=== PATIENT | male | born 1965 | race Caucasian/White ===

== ENCOUNTER 2016-12-07 12:31 | Emergency (ER) | payer OTHER ==
[2016-12-07 13:00] VITALS: BP 139/84; PULSE 83; TEMP 98.2; BMI 46.0
--- NOTE | 2016-12-07 13:24 | EDPRACDOC ---
- General Information Stated Complaint: RT FOOT SWELLING/PAIN Time Seen by Provider: 12/07/16 13:07 Information Source: Patient Mode of Arrival: Car Home Medications: Home Medications Albuterol Sulfate [Ventolin Hfa] 1 - 2 puff INH Q4H PRN 07/07/15 Lisinopril [Prinivil] 20 mg PO DAILY 07/07/15 Atenolol [Tenormin] 50 mg PO DAILY 10/12/15 Budesonide/Formoterol Fumarate [Symbicort 160-4.5 Mcg Inhaler] 2 puff INH BID Clonazepam [Klonopin] 1 mg PO DAILY 10/12/15 Hydrochlorothiazide 25 mg PO DAILY 10/12/15 Metformin HCl [Fortamet] 500 mg PO DAILY 10/12/15 [place]-3 Acid Ethyl Esters [Lovaza] 2 gm PO DAILY 10/12/15 Omeprazole 20 mg PO DAILY 10/12/15 Acyclovir 800 mg PO 5XD #35 tablet 09/02/16 Gentamicin Sulfate 3.5 gm OD BID #1 oint...g. 09/02/16 Oxycodone Immediate Release [Oxycodone Immediate Release (OxyIR)] 5 mg PO Q6H PRN #30 tab 09/02/16 Prednisone [Deltasone, Orasone] 2 tabs PO DAILY #14 tab 09/02/16 Colchicine 0.6 mg PO DAILY PRN #15 tablet 12/07/16 Oxycodone Immediate Release [Oxycodone Immediate Release (OxyIR)] 5 mg PO Q6H PRN #15 tab 12/07/16 Prednisone [Deltasone, Orasone] 20 mg PO DAILY #20 tab 12/07/16 Allergies/Adverse Reactions: Allergies Allergy/AdvReac Type Severity Reaction Status Date / Time Penicillins Allergy Severe Rash-Genera Verified 09/02/16 17:05 lized aspirin Allergy Rash-Genera Verified 09/02/16 17:05 lized - History of Present Illness Onset: 3 days HPI: Pt c/o R great toe pain with redness and swelling x 3 days. Denies injury, red streaking. Hx DM Foot Problem Location: Reports: Right Mechanism: Reports: No Injury Circumstances: Reports: Spontaneous Able to Bear Weight: Limited Pain Severity: Reports: Moderate Associated Signs & Symptoms: Reports: Swelling ED Past Medical History - History Reviewed Yes Nurses notes reviewed and agree except as marked - Patient Medical History Neurological History: Cardiac History: Reports: Hypertension, Heart Attack (MILD MORE THAN 10YRS AGO) Respiratory History: Reports: COPD, Pneumonia (11/2014), Emphysema Musculoskeletal History: Reports: Arthritis Psychological History: Reports: Anxiety (SEVERE). Denies: Depression, Substance Use Disorder Systemic History: Reports: Diabetes (NIDDM) Surgical History: Reports: Cholecystectomy (2006), Other (right wrist. sinus surgery 2001. anal abscess 14 yrs ago.) - Family Medical History Reports: Hypertension (PARENTS), Diabetes (MOTHER, SISTER), Cancer (FATHER [place]IVER [place]), Stroke (MOTHER), Cardiac Disorders (PARENTS) - Social Medical History Smoking Status: Heavy tobacco smoker (5 or more cigarettes/day or daily pipe/ cigar) Social History: Denies: Substance Use Disorder ETOH: None Substance Abuse: None EDM Review of Systems - Review of Systems Constitutional: No Symptoms Reported. negative: Fever, Chills, Weakness, Fatigue, Loss of Appetite Neurological: No Symptoms Reported. negative: Headache, Dizziness, Seizure, Numbness, Weakness, Speech Difficulty, Gait Difficulty Musculoskeletal: Foot Integumentary: No Symptoms Reported. negative: Itching, Rash, Bruising, Wound Allergic/Immunologic: No Symptoms Reported. negative: Hives, Itching Hematologic: No Symptoms Reported. negative: Lymphadenopathy, Easy Bruising, Easy Bleeding Psychiatric: No Symptoms Reported. negative: Anxiety, Depression, Hallucinations, Insomnia, Suicidal - Physical Exam Constitutional: Alert Oriented to: Time, Person, Place Last recorded Vital Signs: Last Vital Signs Temp 98.2 F 12/07/16 12:59 Pulse 83 12/07/16 12:59 Resp 20 12/07/16 12:59 BP 139/84 12/07/16 12:59 Pulse Ox 93 12/07/16 12:59 Oxygen Pulse Oxygen Saturation 93 O2 Device Room Air Oxygen Flow Rate Fraction of Inspired Oxygen ( FIO2) - HEENT Head: Normal ( normocephalic) - Respiratory/Cardiovascular Respiratory: Normal - CTA (BBS clear to auscultation without adventitious sounds ) Cardiovascular: Normal (RRR without murmur, gallop or rub) - Musculoskeletal Extremities: Normal (Normal tone, Pulses 2+ No cyanosis or edema, FROM) - Integumentary Skin: Normal, Warm, Dry Lymphatics: Normal (no adenopathy) - Neurologic Memory Impaired: Normal Motor Function: Normal (Normal tone, Pulses 2+ No cyanosis or edema, FROM) Mood Description: Normal Perception: Normal ED Foot Problem Phys Exam - Musculoskeletal Foot: Swelling (R) Ankle: Normal Achilles Tendon: Normal Nail: Normal Nailbed: Normal Soft Tissue: Tender, Red, Swelling Digit: Moderate Tenderness (R great toe) Digit Strength: Normal Distal Function/Circulation: Normal - Integumentary Skin: Swelling, Red Lymphatics: Normal - Differential Diagnosis Gout Arthritis, Sprain, Other (cellulitis) Decision Time to Discharge: 13:25 - Departure Disposition: Home Condition: Good Final Diagnosis: Gouty arthritis of toe of right foot Instructions: Gout (ED) Education/Counseling Given To: Patient Education/Counseling Given Regarding: Diagnosis, Treatment, Follow Up Referrals: None,No Provider [Primary Care Provider] - One Week Eriberto Amador MD [Staff Physician] - One Week Prescriptions: Colchicine 0.6 mg PO DAILY PRN #15 tablet PRN Reason: Gout Symptoms Oxycodone Immediate Release [Oxycodone Immediate Release (OxyIR)] 5 mg PO Q6H PRN #15 tab PRN Reason: Pain Prednisone [Deltasone, Orasone] 20 mg PO DAILY #20 tab Additional Instructions: Return for worse or different symptoms.
== END 2016-12-07 13:38 | disposition home or self-care (01) ==
LOC: EDMC 12:31
DX: M10.9 Gout, unspecified (principal); I10 Essential (primary) hypertension; J44.9 Chronic obstructive pulmonary disease, unspecified; F41.9 Anxiety disorder, unspecified; E11.9 Type 2 diabetes mellitus without complications; F17.200 Nicotine dependence, unspecified, uncomplicated; Z79.899 Other long term (current) drug therapy
CPT/HCPCS: 99282

== ENCOUNTER 2016-12-28 09:46 | Emergency (ER) | payer OTHER ==
[2016-12-28 10:18] VITALS: BMI 43.9
[2016-12-28 11:15] LABS: AUTOMATED BASOPHIL 0.5 % (0-2); AUTOMATED EOSINOPHIL 0.1 % (0-5); AUTOMATED LYMPH 13.9 % (17-44); AUTOMATED MONOCYTE 10.2 % (3-10); AUTOMATED NEUTROPHIL 75.3 % (45-76); MPV 8.1 fL (7.4-10.4)
[2016-12-28 11:30] LABS: PARTIAL THROMB. TIME 29.1 SEC (22-35); PT-INR 1.1
[2016-12-28] MEDS ORDERED: TUSSIONEX 5 ML ORAL SYRINGE PO ONE (11:34)
[2016-12-28] MEDS ORDERED: Albuterol/Ipratropium Neb 3 ML NEB NEB ONE (11:34)
[2016-12-28] MEDS ORDERED: METHYLPREDNISOLONE 125 MG/2 ML VIAL IV ONE (11:34)
[2016-12-28] MEDS ORDERED: NS 1,000 ML IV ONE (11:34)
[2016-12-28 11:36] LABS: BLOOD UREA NITROGEN 12 MG/DL (9-20); CALC CORRECTED 8.3 MG/DL (8.4-10.2); CALCIUM 8.2 MG/DL (8.4-10.2); CALCULATED OSMOLALITY 259 MOs/Kg (270-290); CHLORIDE 96 mEq/L (98-107); GLUCOSE 121 mg/dL (70-99); SODIUM LEVEL 134 mEq/L (137-146); TOTAL PROTEIN 6.8 G/DL (6.3-8.2)
--- NOTE | 2016-12-28 11:49 | DIRPT ---
CLINICAL DATA: Cough, fever, nonproductive cough, shortness of breath with exertion and at rest for 3 days EXAM: CHEST 2 VIEW COMPARISON: 08/07/2016 FINDINGS: Enlargement of cardiac silhouette with pulmonary vascular congestion. Stable mediastinal contours. Increased perihilar markings RIGHT greater than LEFT, question asymmetric edema versus developing consolidation. No pleural effusion or pneumothorax. Bones unremarkable. IMPRESSION: Enlargement of cardiac silhouette with pulmonary vascular congestion and asymmetric pulmonary infiltrates RIGHT greater than LEFT, question asymmetric edema versus infection. Electronically Signed By: Dio Warner M.D. On: 12/28/2016 11:46
[2016-12-28 12:00] LABS: ALLEN'S TEST PASS; BEb 4.3 (+/- 2); TCO2 28.1 MMOL/L (23-27)
[2016-12-28 12:01] LABS: ABG Draw Site Left Radial; ABG Draw Tech SPEMA
[2016-12-28] MEDS ORDERED: ACETAMINOPHEN 325 MG/TAB TABLET PO ONE (12:22)
[2016-12-28 12:47] LABS: LEUKOCYTES/URINE NEG (NEGATIVE); NITRITE/URINE NEG (NEGATIVE); RBC/URINE 40-50 (0-2); URINE OCCULT BLOOD 2+ (NEG/TRACE)
[2016-12-28] MEDS ORDERED: CEFTRIAXONE 1 GM in D5W 100 ML IV ONE (12:50)
[2016-12-28] MEDS ORDERED: AZITHROMYCIN 500 MG in D5W 250 ML IV ONE (12:50)
[2016-12-28 13:31] VITALS: TEMP 98.9
--- NOTE | 2016-12-28 13:44 | EDPRACDOC ---
- General Information Chief Complaint: Dyspnea/Resp distress Stated Complaint: FEVER/ DIFFICULTY BREATHING Time Seen by Provider: 12/28/16 11:13 Information Source: Patient, Family Mode Of Arrival: Car Home Medications: Home Medications Albuterol Sulfate [Ventolin Hfa] 1 - 2 puff INH Q4H PRN 07/07/15 Lisinopril [Prinivil] 20 mg PO DAILY 07/07/15 Atenolol [Tenormin] 50 mg PO DAILY 10/12/15 Budesonide/Formoterol Fumarate [Symbicort 160-4.5 Mcg Inhaler] 2 puff INH BID Clonazepam [Klonopin] 1 mg PO DAILY 10/12/15 Hydrochlorothiazide 25 mg PO DAILY 10/12/15 Metformin HCl [Fortamet] 500 mg PO DAILY 10/12/15 [place]-3 Acid Ethyl Esters [Lovaza] 2 gm PO DAILY 10/12/15 Levofloxacin [Levaquin] 750 mg PO DAILY #14 tablet 12/28/16 Allergies/Adverse Reactions: Allergies Allergy/AdvReac Type Severity Reaction Status Date / Time Penicillins Allergy Severe Rash-Genera Verified 12/28/16 10:18 lized aspirin Allergy Rash-Genera Verified 12/28/16 10:18 lized - History of Present Illness Onset: SEVERAL DAYS HPI: PT PRESENTS WITH SHORTNESS OF BREATH, PRODUCTIVE COUGH AND FEVER. STATES HE HAS NOT FELT WELL FOR SEVERAL DAYS. PT STATES HE HAS COPD, HTN AND DM. PT IS A SMOKER. PT STATES HE HAS BEEN HAVING GREEN SPUTUM FOR SEVERAL DAYS. 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 Denies: Substance Use Disorder Systemic History: Reports: Diabetes (NIDDM) Surgical History: Reports: Cholecystectomy (2007), Other (right wrist. sinus surgery 2001. anal abscess 14 yrs ago.) - Family Medical History Reports: Hypertension (PARENTS), Diabetes (MOTHER, SISTER), Cancer (FATHER [place]IVER [place]), Stroke (MOTHER), Cardiac Disorders (PARENTS) - Social Medical History Smoking Status: Heavy tobacco smoker (5 or more cigarettes/day or daily pipe/ cigar) Social History: Denies: Other Substance Use EDM Review of Systems - Review of Systems ROS Negative Except as Marked: Yes All systems reviewed and were negative except as marked - Physical Exam Constitutional: Alert. negative: Well appearing Oriented to: Time, Person, Place Last recorded Vital Signs: Last Vital Signs Temp 98.9 F 12/28/16 13:30 Pulse 81 12/28/16 13:30 Resp 20 12/28/16 13:30 BP 120/68 12/28/16 12:36 Pulse Ox 93 12/28/16 13:30 Oxygen Pulse Oxygen Saturation 93 O2 Device Room Air Oxygen Flow Rate Fraction of Inspired Oxygen ( FIO2) - HEENT Head: Normal ( normocephalic) Eye Exam: Normal (PERRL, EOMI, Sclera white) Oropharynx: Normal (Pharynx:Moist without exudate,Gums-no swelling) Nose: No Symptoms Reported (septum midline) Neck: Normal (FROM, trachea at midline) - Respiratory/Cardiovascular Respiratory: Diminished, Rhonchi, Wheezes Cardiovascular: Normal (RRR without murmur, gallop or rub) - GI Auscultation: Normal (NABS) Palpation: Normal (Soft,No rebound or guarding, non distended) Tenderness: Non tender Christiansen's Sign: Negative Rectal Exam: Deferred - Musculoskeletal Back: Normal (Non-Tender) Extremities: Normal (Normal tone, Pulses 2+ No cyanosis or edema, FROM) - Integumentary Skin: Normal, Warm, Dry Lymphatics: Normal (no adenopathy) - Neurologic Memory Impaired: Normal Motor Function: Normal (Normal tone, Pulses 2+ No cyanosis or edema, FROM) Cranial Nerve: Normal (CN II-X11 intact sensation, strength 5/5) Cerebellar: Normal Mood Description: Normal Perception: Normal ED SOB MDM - Differential Diagnosis Differential Diagnosis: Pnuemonia - Results Result Diagrams: 12/28/16 10:55 12/28/16 10:55 Results: WBC 9.1 xk/uL (3.8-10.8) 12/28/16 10:55 RBC 5.65 xM/uL (4.70-6.10) 12/28/16 10:55 Hgb 15.9 g/dL (14.0-18.0) 12/28/16 10:55 Hct 47.4 % (42-52) 12/28/16 10:55 MCV 84 fL (80-94) 12/28/16 10:55 MCH 28.2 pg (27-32) 12/28/16 10:55 MCHC 33.6 g/dl (33-36) 12/28/16 10:55 RDW 15.1 % (11.5-14.5) H 12/28/16 10:55 Plt Count 238 xk/uL (130-400) 12/28/16 10:55 MPV 8.1 fL (7.4-10.4) 12/28/16 10:55 Neut % (Auto) 75.3 % (45-76) 12/28/16 10:55 Lymph % (Auto) 13.9 % (17-44) L 12/28/16 10:55 [place] % (Auto) 10.2 % (3-10) H 12/28/16 10:55 Eos % (Auto) 0.1 % (0-5) 12/28/16 10:55 Baso % (Auto) 0.5 % (0-2) 12/28/16 10:55 Absolute Neuts (auto) 6.83 xk/uL (1.7-8.2) 12/28/16 10:55 Absolute Lymphs (auto) 1.18 xk/uL (0.65-4.75) 12/28/16 10:55 PT 11.7 SEC (9.2-11.2) H 12/28/16 10:55 INR 1.1 12/28/16 10:55 APTT 29.1 SEC (22-35) 12/28/16 10:55 Puncture Site Left radial 12/28/16 12:00 pH 7.510 pH UNITS (7.35-7.45) H 12/28/16 12:00 pCO2 34.0 mmHg (35-45) L 12/28/16 12:00 pO2 63.0 mmHg (80-100) L 12/28/16 12:00 HCO3 27.1 MMOL/L (22-26) H 12/28/16 12:00 Total CO2 28.1 MMOL/L (23-27) H 12/28/16 12:00 Base Excess 4.3 (+/- 2) H 12/28/16 12:00 FiO2 % 21 12/28/16 12:00 Specimen Drawn By Spema 12/28/16 12:00 Sodium 134 mEq/L (137-146) L 12/28/16 10:55 Potassium 3.2 mEq/L (3.5-5.1) L 12/28/16 10:55 Chloride 96 mEq/L (98-107) L 12/28/16 10:55 Carbon Dioxide 27 mMOL/L (22-33) 12/28/16 10:55 Anion Gap 14 mEq/L (8-16) 12/28/16 10:55 BUN 12 MG/DL (9-20) 12/28/16 10:55 Creatinine 0.90 MG/DL (0.66-1.25) 12/28/16 10:55 Estimated GFR (MDRD) > 60 mL/min (>=60) 12/28/16 10:55 Glucose 121 mg/dL (70-99) H 12/28/16 10:55 POC Capillary Glucose 164 mg/dL (70-99) H 12/28/16 13:30 Calculated Osmolality 259 MOs/Kg (270-290) L 12/28/16 10:55 Lactic Acid 1.8 mEq/L (0.7-2.1) 12/28/16 10:55 Calcium 8.2 MG/DL (8.4-10.2) L 12/28/16 10:55 Corrected Calcium 8.3 MG/DL (8.4-10.2) L 12/28/16 10:55 Total Bilirubin 0.7 MG/DL (0.2-1.3) 12/28/16 10:55 AST 52 IU/L (17-59) 12/28/16 10:55 ALT 62 IU/L (21-72) 12/28/16 10:55 Alkaline Phosphatase 59 IU/L (38-126) 12/28/16 10:55 Troponin I < 0.01 ng/mL (<.04) 12/28/16 10:55 Chp-U-Zccsjoomcjt Pept 594 pg/mL (0-900) 12/28/16 10:55 Total Protein 6.8 G/DL (6.3-8.2) 12/28/16 10:55 Albumin 3.9 G/DL (3.5-5.0) 12/28/16 10:55 Urine Color Elena 12/28/16 12:30 Urine Clarity Sl cldy 12/28/16 12:30 Urine pH 6.0 (5.0-8.0) 12/28/16 12:30 Ur Specific [place] 1.020 (1.003-1.035) 12/28/16 12:30 Urine Protein 3+ (NEG/TRACE) H 12/28/16 12:30 Urine Glucose (UA) Neg (NEGATIVE) 12/28/16 12:30 Urine Ketones 1+ (NEGATIVE) H 12/28/16 12:30 Urine Occult Blood 2+ (NEG/TRACE) H 12/28/16 12:30 Urine Nitrite Neg (NEGATIVE) 12/28/16 12:30 Urine Bilirubin Neg (NEGATIVE) 12/28/16 12:30 Urine Urobilinogen <2.0 MG/DL (0-1) 12/28/16 12:30 Ur Leukocyte Esterase Neg (NEGATIVE) 12/28/16 12:30 Urine RBC 40-50 (0-2) H 12/28/16 12:30 Urine WBC 5-10 (0-2) H 12/28/16 12:30 Ur Epithelial Cells 1+ 12/28/16 12:30 Hyaline Casts 2-5 (0-2) H 12/28/16 12:30 Urine Mucus Mod (NEG/OCC) H 12/28/16 12:30 Urine Yeast Sm amt (NONE) 12/28/16 12:30 Microbiology 12/28/16 11:30 Influenza Type A Antigen Screen - Final N/P - Naso/Pharyngeal NEGATIVE Please note: A NEGATIVE result does not exclude an influenza virus infection. It is a presumptive result and, if required, confirmation should be done using either a virus culture or an FDA-cleared influenza A&B molecular assay. ("NORMAL" value = "NEGATIVE".) Influenza Type B Antigen Screen - Final NEGATIVE Please note: A NEGATIVE result does not exclude an influenza virus infection. It is a presumptive result and, if required, confirmation should be done using either a virus culture or an FDA-cleared influenza A&B molecular assay. ("NORMAL" value = "NEGATIVE".) Lab Results 12/28/16 12/28/16 12/28/16 13:30 12:39 12:30 WBC RBC Hgb Hct MCV MCH MCHC RDW Plt Count MPV Neut % (Auto) Lymph % (Auto) [place] % (Auto) Eos % (Auto) Baso % (Auto) Absolute Neuts (auto) Absolute Lymphs (auto) PT INR APTT Puncture Site pH pCO2 pO2 HCO3 Total CO2 Base Excess FiO2 % Specimen Drawn By Sodium Potassium Chloride Carbon Dioxide Anion Gap BUN Creatinine Estimated GFR (MDRD) Glucose POC Capillary Glucose 164 H 139 H Calculated Osmolality Lactic Acid Calcium Corrected Calcium Total Bilirubin AST ALT Alkaline Phosphatase Troponin I Uyq-K-Hhfkjsyjoef Pept Total Protein Albumin Urine Color Elena Urine Clarity Sl cldy Urine pH 6.0 Ur Specific [place] 1.020 Urine Protein 3+ H Urine Glucose (UA) Neg Urine Ketones 1+ H Urine Occult Blood 2+ H Urine Nitrite Neg Urine Bilirubin Neg Urine Urobilinogen <2.0 Ur Leukocyte Esterase Neg Urine RBC 40-50 H Urine WBC 5-10 H Ur Epithelial Cells 1+ Hyaline Casts 2-5 H Urine Mucus Mod H Urine Yeast Sm amt 12/28/16 12/28/16 12/28/16 12:00 10:55 10:55 WBC RBC Hgb Hct MCV MCH MCHC RDW Plt Count MPV Neut % (Auto) Lymph % (Auto) [place] % (Auto) Eos % (Auto) Baso % (Auto) Absolute Neuts (auto) Absolute Lymphs (auto) PT 11.7 H INR 1.1 APTT 29.1 Puncture Site Left radial pH 7.510 H pCO2 34.0 L pO2 63.0 L HCO3 27.1 H Total CO2 28.1 H Base Excess 4.3 H FiO2 % 21 Specimen Drawn By Spema Sodium Potassium Chloride Carbon Dioxide Anion Gap BUN Creatinine Estimated GFR (MDRD) Glucose POC Capillary Glucose Calculated Osmolality Lactic Acid 1.8 Calcium Corrected Calcium Total Bilirubin AST ALT Alkaline Phosphatase Troponin I Quh-W-Pgxyunhjqto Pept Total Protein Albumin Urine Color Urine Clarity Urine pH Ur Specific [place] Urine Protein Urine Glucose (UA) Urine Ketones Urine Occult Blood Urine Nitrite Urine Bilirubin Urine Urobilinogen Ur Leukocyte Esterase Urine RBC Urine WBC Ur Epithelial Cells Hyaline Casts Urine Mucus Urine Yeast 12/28/16 12/28/16 10:55 10:55 WBC 9.1 RBC 5.65 Hgb 15.9 Hct 47.4 MCV 84 MCH 28.2 MCHC 33.6 RDW 15.1 H Plt Count 238 MPV 8.1 Neut % (Auto) 75.3 Lymph % (Auto) 13.9 L [place] % (Auto) 10.2 H Eos % (Auto) 0.1 Baso % (Auto) 0.5 Absolute Neuts (auto) 6.83 Absolute Lymphs (auto) 1.18 PT INR APTT Puncture Site pH pCO2 pO2 HCO3 Total CO2 Base Excess FiO2 % Specimen Drawn By Sodium 134 L Potassium 3.2 L Chloride 96 L Carbon Dioxide 27 Anion Gap 14 BUN 12 Creatinine 0.90 Estimated GFR (MDRD) > 60 Glucose 121 H POC Capillary Glucose Calculated Osmolality 259 L Lactic Acid Calcium 8.2 L Corrected Calcium 8.3 L Total Bilirubin 0.7 AST 52 ALT 62 Alkaline Phosphatase 59 Troponin I < 0.01 Lcl-G-Jtgtalnqwmc Pept 594 Total Protein 6.8 Albumin 3.9 Urine Color Urine Clarity Urine pH Ur Specific [place] Urine Protein Urine Glucose (UA) Urine Ketones Urine Occult Blood Urine Nitrite Urine Bilirubin Urine Urobilinogen Ur Leukocyte Esterase Urine RBC Urine WBC Ur Epithelial Cells Hyaline Casts Urine Mucus Urine Yeast Decision Time to Discharge: 13:45 - Departure Disposition: Home Condition: Stable Final Diagnosis: Pneumonia Qualifiers: Pneumonia type: due to unspecified organism Laterality: bilateral Lung location : unspecified part of lung Qualified Code(s): J18.9 - Pneumonia, unspecified organism Instructions: Bacterial Pneumonia (ED) Education/Counseling Given To: Patient Education/Counseling Given Regarding: Diagnosis, Treatment, Prognosis, Follow Up Referrals: James Reinoso II, MD [Staff Physician] - One Week Prescriptions: New Levofloxacin [Levaquin] 750 mg PO DAILY #14 tablet No Action Albuterol Sulfate [Ventolin Hfa] 1 - 2 puff INH Q4H PRN PRN Reason: SHORTNESS OF BREATH Lisinopril [Prinivil] 20 mg PO DAILY Metformin HCl [Fortamet] 500 mg PO DAILY Clonazepam [Klonopin] 1 mg PO DAILY Hydrochlorothiazide 25 mg PO DAILY Atenolol [Tenormin] 50 mg PO DAILY [place]-3 Acid Ethyl Esters [Lovaza] 2 gm PO DAILY Budesonide/Formoterol Fumarate [Symbicort 160-4.5 Mcg Inhaler] 2 puff INH BID Additional Instructions: INCREASE FLUID INTAKE. FOLLOW UP WITH PRIMARY CARE PROVIDER NEXT WEEK. TAKE ALL ANTIBIOTICS PRESCRIBED. RETURN TO THE ED FOR WORSENING SYMPTOMS OR CONCERNS.
[2016-12-28 15:10] VITALS: BP 115/55; PULSE 76
== END 2016-12-28 15:05 | disposition home or self-care (01) ==
LOC: ED 09:46
DX: J18.9 Pneumonia, unspecified organism (principal)
CPT/HCPCS: 36415; 36600; 71020; 80053; 81001; 82803; 82962; 83605; 83880; 84484; 84550; 85025; 85610; 85730; 87040; 87804; 93005; 94640; 96361; 96365; 96366; 96375; 99285; J0456; J0696; J2930; J3490; J7060; J7070; J7620